=== PATIENT | female | born 1965 | race Caucasian/White ===

== ENCOUNTER → 2017-10-27 | Outpatient (CLI) | payer BC ==
[~2017-10-27] MED LIST: BIOTIN 5000MCG PO; CRESTOR20 MG PO; JANUVIA100 MG PO; JARDIANCE10 MG PO; LISINOPRIL5 MG PO; MAGNESIUM250 MG PO; METFORMIN HCL1000 MG PO; MULTIVITAMIN1 EAC2 PO; VITAMIN B-121000 MC3 PO
== END | disposition home or self-care (01) ==
LOC: CDC 08:13
DX: Z01.810 Encounter for preprocedural cardiovascular examination (principal); R94.31 Abnormal electrocardiogram [ECG] [EKG]
CPT/HCPCS: 93000

== ENCOUNTER 2017-11-05 06:34 | Day surgery (SDC) | payer BC ==
[~2017-11-05] VITALS: Ht 157.5 cm; Wt 66.8 kg
[2017-11-05 08:58] VITALS: BP 112/68
[2017-11-05] MEDS ORDERED: PERCOCET 5/31 TABLET PO (12:48)
[2017-11-05 13:52] VITALS: BP 122/66
[2017-11-05 14:48] VITALS: BP 111/56
== END 2017-11-05 15:11 | disposition home or self-care (01) ==
LOC: SDC 06:34 → NUC 06:34 → SDC 07:30
PROVIDERS: Surgery
DX: C43.59 Malignant melanoma of other part of trunk (principal); D22.9 Melanocytic nevi, unspecified; E11.9 Type 2 diabetes mellitus without complications; E78.5 Hyperlipidemia, unspecified; Z87.891 Personal history of nicotine dependence; Z79.84 Long term (current) use of oral hypoglycemic drugs
CPT/HCPCS: 78195; 78999; 82948; 87641; 88305; 88341 TC; 88342 TC; A9541; J0330; J0690; J1170; J1885; J2405; J3010